=== PATIENT | female | born 1980 | race Caucasian/White ===

== ENCOUNTER 2019-04-03 12:34 | Emergency (ER) | payer MEDICAID ==
[~2019-04-03] VITALS: Ht 165.1 cm; Wt 59.9 kg
[2019-04-03 12:42] VITALS: BP_SYST 107
--- NOTE | 2019-04-03 12:49 | NUR ---
Patient to ER bed 4 to gown for evaluation. Side rails up. Report given to Polina SHARPE.
--- NOTE | 2019-04-03 12:50 | NUR ---
Patient is awake, alert, and oriented x4. She is complaining of left lower back pain since yesterday 06/17. Patient reports a history of UTIs, last one 8mos-1yr ago.
--- NOTE | 2019-04-03 12:51 | NUR ---
ER Dr. Shoemaker at bedside examining patient.
[2019-04-03] MEDS ORDERED: KETOROLAC TROMETHAMINE 60 MG/2 ML VIAL IM ONE (13:15)
--- NOTE | 2019-04-03 13:58 | NUR ---
Patient given written and verbal discharge instructions and verbalizes understanding. ER MD discussed with patient the results and treatment provided. Patient in stable condition. ID arm band removed. Rx of pyridium, macrobid given. Patient educated on pain management and to follow up with PMD. Pain Scale 0/10. Opportunity for questions provided and answered. Medication side effect fact sheet provided.
[2019-04-03 13:59] VITALS: BP_SYST 104
== END 2019-04-03 13:58 | disposition home or self-care (01) ==
LOC: SED 12:34
DX: N39.0 Urinary tract infection, site not specified (principal)
CPT/HCPCS: 81002; 81025; 96372; 99283; J1885